=== PATIENT | female | born 1990 | race Caucasian/White ===

== ENCOUNTER 2020-07-28 00:09 | Emergency (ER) | payer MEDICARE, OTHER ==
[~2020-07-28] VITALS: Ht 157.5 cm; Wt 78.6 kg
[2020-07-28 00:39] VITALS: BP 128/83
--- NOTE | 2020-07-28 01:21 | PHYS DOC ---
Past Medical History Past Medical History: Depression, Other Additional Past Medical Histor: VERTIGO Past Surgical History: , Tubal ligation Additional Past Surgical Histo: SKIN GRAFTS, EYE SURGERY Smoking Status: Never Smoker Alcohol Use: Occasionally Drug Use: None General Adult EDM: Chief Complaint: ABDOMINAL PAIN HPI: HPI: Patient is a 30yo femlae without significant medical history presenting for abdominal pain. This is a chronic issue. Reports going to [facility] "several months ago" and had comprehensive workup for same issue and was told she had "blood clots in my stomach". She has never followed up with PCP or anyone else in outpa tient setting for follow-up. States she got anxious about this tonight and came for evaluation. Nothing known makes better or worse. Timing is inconsistent. Review of Systems: Review of Systems: Fourteen body systems of review of systems have been reviewed. See HPI for pertinent positives and negative responses, other quinones all other systems are negative, non-pertinent or non-contributory Heart Score: C/O Chest Pain: No Risk Factors: Risk Factors: DM, Current or recent (<one month) smoker, HTN, HLP, family history of CAD, obesity. Risk Scores: Score 0 - 3: 2.5% MACE over next 6 weeks - Discharge Home Score 4 - 6: 20.3% MACE over next 6 weeks - Admit for Clinical Observation Score 7 - 10: 72.7% MACE over next 6 weeks - Early Invasive Strategies Allergies: Allergies: Allergies Coded Allergies Type Severity Reaction Last Updated Verified amoxicillin Allergy Intermediate Hives 11/14/13 Yes Physical Exam: PE: Constitutional: Well developed, well nourished, no acute distress, non-toxic appearance. HENT: Normocephalic, atraumatic, bilateral external ears normal, oropharynx moist, no oral exudates, nose normal. Eyes: PERRLA, EOMI, conjunctiva normal, no discharge. Neck: Normal range of motion, no tenderness, supple, no stridor. Cardiovascular: Heart rate regular, sinus rhythm, no murmurs rubs or gallops Lungs & Thorax: Bilateral breath sounds clear to auscultation Abdomen: Bowel sounds normal, soft, no tenderness, no masses, no pulsatile masses. Nonsurgical abdomen, no peritoneal signs Skin: Warm, dry, no erythema, no rash. Back: No tenderness, no CVA tenderness. Extremities: No tenderness, no cyanosis, no clubbing, ROM intact, no edema. Neurologic: Alert and oriented X 3, grossly normal motor & sensory function, no focal deficits noted. Psychologic: odd affect Current Patient Data: Labs: Laboratory Tests Test 07/28/20 00:19 POC Urine HCG, Qualitative Hcg negative (Negative) Vital Signs: Vital Signs Date Time Temp Pulse Resp B/P (MAP) Pulse Ox O2 Delivery O2 Flow Rate FiO2 07/28/20 00:39 98.2 83 18 128/83 (98) 98 Room Air 98.2 EKG: EKG: [] Radiology/Procedures: Radiology/Procedures: [] Course & Med Decision Making: Course & Med Decision Making VSS. HPI and PE non-concerning for emergent pathology I discussed potential workup plans but patient got aggitated that we did not readily have [facility] records available for review. She does not want us to "redo what they've already done". I tried verbal deescalating patient and offered to contact [facility] to obtain records to better assist and limit amount of repeat testing that would be done but patient deferred. Patient with full cpaacity reporting she wants to leave AMA and go to [facility] where they have her records. She eloped from ER without alerting any healthcare professional as I was typing up discharge paperwork for her Elke Disclaimer: Elke Disclaimer: This electronic medical record was generated, in whole or in part, using a voice recognition dictation system. Departure Departure Impression: Primary Impression: Left against medical advice Additional Impression: Abdominal pain Disposition: LEFT AWOL/ELOPED Condition: GUARDED Referrals: ARON LAWS MD (PCP) Additional Instructions: You have been evaluated in the Emergency Department today for abdominal pain. Your physical exam was not suggestive of any emergent condition requiring medic al intervention at this time. After obtaining a thorough history, you report having extensive work-up done at outlying facility, [facility] for same pain 1 month ago that has been unchanged. I recommended repeating similar work-up but you declined and wanted to go back to [facility] where they have your records and prior studies You were aware of risks and benefits of said decision to leave our facility and travel to another facility for evaluation and assumes all risk that ensued. Return to the Emergency Department if you experience worsening pain, persistent fevers greater than 100.4, recurrent vomiting, blood in vomit, blood in stool, dark tarry stool, chest pain, difficulty breathing, or any other concerning symptoms. HAZEL REYES DO July 28, 2020 01:21
== END 2020-07-28 01:20 | disposition left against medical advice (07) ==
LOC: ER 00:09
DX: R10.32 Left lower quadrant pain (principal); Z98.51 Tubal ligation status; Z88.1 Allergy status to other antibiotic agents
CPT/HCPCS: 81025; 99282